=== PATIENT | female | born 1980 | race Caucasian/White ===

== ENCOUNTER 2017-11-24 22:37 | Observation (INO) | payer OTHER ==
--- NOTE | 2017-11-24 23:06 | EDPHY ---
H & P Stated Complaint: c/o r lq abd pain x 3 hours, vomited x 3. Time Seen by Provider: 11/24/17 22:57 HPI/ROS: CHIEF COMPLAINT: Right mid abdominal pain HISTORY OF PRESENT ILLNESS: 37-year-old female, except for obesity - otherwise healthy, reports subacute onset of right mid abdominal pain beginning at 8:00 p.m.. Over the ensuing 3 and 0.5 hr it has been a somewhat of a cyclical pain at times peaking during which time she experienced associated nausea and vomiting and diaphoresis. Over the time the pain has not migrated and has been continually in the right mid quadrant. It does not radiate to the shoulder blade nor does it radiate into the inguinal region. None into the legs. She has never had this kind of pain before Dinner was 3 hr prior, consistent of alexa from a can P: Not worse with movement or breathing Q: Pain R: Right mid abdomen that radiation S: Moderate severe to severe T: Onset at 8:00 p.m., fairly abrupt but getting worse at time since No prior abdominal imaging REVIEW OF SYSTEMS: Constitutional: No fever, no chills. Eyes: No discharge ENT: No sore throat. Cardiovascular: No chest pain, no palpitations. Respiratory: No cough, shortness of breath, or wheezing. Gastrointestinal: See above Genitourinary: No hematuria or frequency. Musculoskeletal: No back pain. Skin: No rashes. Neurological: No headache. 10 point ROS otherwise negative Source: Patient Exam Limitations: No limitations - Personal History LMP (Females 10-55): Now Current Tetanus Diphtheria and Acellular Pertussis (TDAP): Yes - Medical/Surgical History Hx Asthma: No Hx Chronic Respiratory Disease: No Hx Diabetes: No Hx Cardiac Disease: No Hx Renal Disease: No Hx Cirrhosis: No Hx Alcoholism: No Hx HIV/AIDS: No Hx Splenectomy or Spleen Trauma: No Other PMH: No abdominal surgery - Family History Significant Family History: No pertinent family hx (She was adopted.) - Social History Smoking Status: Never smoked Alcohol Use: None Drug Use: None - Physical Exam Exam: General Appearance: Alert, mildly clammy on brow, though good color. Obese. Afebrile. Normal phonation. No respiratory distress. Eyes: Pupils equal and round no pallor or injection. No icterus ENT, Mouth: Mucous membranes moderately dry Pharynx without erythema or exudate. TM Clear. Neck: No adenopathy. Supple. No JVD. Trachea in midline. Respiratory: There are no retractions, lungs are clear to auscultation. Chest wall: Nontender to palpation. No crepitus. Cardiovascular: Regular rate and rhythm, without murmur Abdomen: Soft moderately tender in the right mid quadrant and to a lesser extent the right upper quadrant. No tenderness in the right lower quadrant. Percussion sensitivity to the right mid quadrant. No masses, bowel sounds are normal, no guarding. Neurological: Ox3. No motor weakness. Sensation intact. Gait nl. Skin: Warm and dry, no rashes. Musculoskeletal: No joint swelling. Extremities: No edema. Homans sign negative. No cords. Psychiatric: Normal affect. Patient is oriented X 3. There is no agitation Constitutional: Initial Vital Signs Temperature (C) 36.6 C 11/24/17 22:47 Heart Rate 98 11/24/17 22:47 Respiratory Rate 18 11/24/17 22:47 Blood Pressure 136/105 H 11/24/17 22:47 O2 Sat (%) 100 11/24/17 22:47 O2 Delivery Mode Room Air Allergies/Adverse Reactions: No Known Allergies Allergy (Unverified 11/24/17 22:46) Home Medications: Medication Instructions Recorded NK [No Known Home Meds] 11/24/17 Medical Decision Making - Diagnostics Imaging Results: Ultrasound of the abdomen. Interpretation by radiologist. Discussed with radiologist. She has a large 2.5 cm stone lodged in the neck of the gallbladder with gallbladder dilatation of 6.5 cm. The common bile duct is 3 mm. There is no signs of cholecystitis. Imaging: Discussed imaging studies w/ call center professional Radiologist ED Course/Re-evaluation: IV is established and the patient was medicated for her comfort. This included IV medications as follows: Zofran 4 mg and Fentanyl 50 mcg Dilaudid titration over the ensuing 2 hr Based upon the initial clinical exam and high suspicion for biliary colic with cholelithiasis an ultrasound was requested and performed. These results reviewed with the radiologist, confirming my suspicions. I discussed the case with General surgery on-call Dr. Cuevas. He concurred with the plan for admission for pain management, observation with consideration of cholecystectomy in the day tomorrow. At this point in time there is no signs of complications such as cholecystitis, cholangitis, or choledocholithiasis, nor pancreatitis. After about another hour, we were able to hear from the [facility] that indeed a bed was available. Overtime, the initial mery of medications was no longer effective and she required additional Dilaudid for total of 1.5 mg as well as additional Zofran. I met with the patient and recommended a transfer to the hospital by ambulance; however, she requested to go by private car. She continued to be nontoxic appearing, afebrile, and had persistent right mid and right upper quadrant tenderness. Differential Diagnosis: Differential diagnosis includes, but is not limited to: Gastroenteritis, dehydration, hepatitis, pancreatitis, renal colic, kidney stones, ureterolithiasis, cholecystitis, appendicitis, gastritis, mesenteric adenitis. - Data Points Laboratory Results: Laboratory Results 11/24/17 23:00 11/24/17 23:00 11/24/17 11/24/17 11/24/17 23:05 23:00 23:00 WBC RBC Hgb Hct MCV MCH MCHC RDW Plt Count MPV Neut % (Auto) Lymph % (Auto) Toole % (Auto) Eos % (Auto) Baso % (Auto) Nucleat RBC Rel Count Absolute Neuts (auto) Absolute Lymphs (auto) Absolute Monos (auto) Absolute Eos (auto) Absolute Basos (auto) Absolute Nucleated RBC Immature Gran % Immature Gran # Sodium 143 mEq/L mEq/L (135-145) Potassium 4.4 mEq/L mEq/L (3.5-5.2) Chloride 104 mEq/L mEq/L (97-110) Carbon Dioxide 21 mEq/l L mEq/l (22-31) Anion Gap 18 mEq/L H mEq/L (8-16) BUN 22 mg/dL mg/dL (7-23) Creatinine 1.2 mg/dL H mg/dL (0.6-1.0) Estimated GFR 51 Glucose 120 mg/dL H mg/dL (70-100) Calcium 9.5 mg/dL mg/dL (8.5-10.4) Total Bilirubin 0.4 mg/dL mg/dL (0.1-1.4) Conjugated Bilirubin 0.2 mg/dL mg/dL (0.0-0.5) Unconjugated Bilirubin 0.2 mg/dL mg/dL (0.0-1.1) AST 17 IU/L IU/L (14-46) ALT 28 IU/L IU/L (9-52) Alkaline Phosphatase 64 IU/L IU/L (38-126) Total Protein 7.6 g/dL g/dL (6.3-8.2) Albumin 4.1 g/dL g/dL (3.5-5.0) Lipase 175 IU/L IU/L (23-300) Beta HCG, Qual NEGATIVE Urine Color Cancelled Urine Appearance Cancelled Urine pH Cancelled Ur Specific Raymond Cancelled Urine Protein Cancelled Urine Ketones Cancelled Urine Blood Cancelled Urine Nitrate Cancelled Urine Bilirubin Cancelled Urine Urobilinogen Cancelled Ur Leukocyte Esterase Cancelled Urine Glucose Cancelled 11/24/17 23:00 WBC 11.83 10^3/uL H 10^3/uL (3.80-9.50) RBC 4.56 10^6/uL 10^6/uL (4.18-5.33) Hgb 13.6 g/dL g/dL (12.6-16.3) Hct 39.4 % % (38.0-47.0) MCV 86.4 fL fL (81.5-99.8) MCH 29.8 pg pg (27.9-34.1) MCHC 34.5 g/dL g/dL (32.4-36.7) RDW 12.1 % % (11.5-15.2) Plt Count 318 10^3/uL 10^3/uL (150-400) MPV 11.3 fL fL (8.7-11.7) Neut % (Auto) 76.6 % H % (39.3-74.2) Lymph % (Auto) 17.7 % % (15.0-45.0) Toole % (Auto) 4.2 % L % (4.5-13.0) Eos % (Auto) 0.9 % % (0.6-7.6) Baso % (Auto) 0.3 % % (0.3-1.7) Nucleat RBC Rel Count 0.0 % % (0.0-0.2) Absolute Neuts (auto) 9.07 10^3/uL H 10^3/uL (1.70-6.50) Absolute Lymphs (auto) 2.09 10^3/uL 10^3/uL (1.00-3.00) Absolute Monos (auto) 0.50 10^3/uL 10^3/uL (0.30-0.80) Absolute Eos (auto) 0.11 10^3/uL 10^3/uL (0.03-0.40) Absolute Basos (auto) 0.03 10^3/uL 10^3/uL (0.02-0.10) Absolute Nucleated RBC 0.00 10^3/uL 10^3/uL (0-0.01) Immature Gran % 0.3 % % (0.0-1.1) Immature Gran # 0.03 10^3/uL 10^3/uL (0.00-0.10) Sodium Potassium Chloride Carbon Dioxide Anion Gap BUN Creatinine Estimated GFR Glucose Calcium Total Bilirubin Conjugated Bilirubin Unconjugated Bilirubin AST ALT Alkaline Phosphatase Total Protein Albumin Lipase Beta HCG, Qual Urine Color Urine Appearance Urine pH Ur Specific Raymond Urine Protein Urine Ketones Urine Blood Urine Nitrate Urine Bilirubin Urine Urobilinogen Ur Leukocyte Esterase Urine Glucose Medications Given: Discontinued Medications Dexamethasone (Decadron Injection) 4 mg IVP ONCALL ONE Stop: 11/25/17 03:35 Last Admin: 11/25/17 06:08 Dose: 4 mg Fentanyl (Sublimaze) 50 mcg IVP EDNOW ONE Stop: 11/24/17 23:19 Last Admin: 11/24/17 23:25 Dose: 50 mcg Hydromorphone HCl (Dilaudid) 0.5 mg IVP EDNOW ONE Stop: 11/24/17 23:19 Last Admin: 11/24/17 23:46 Dose: 0.5 mg Hydromorphone HCl (Dilaudid) 0.5 mg IVP EDNOW ONE Stop: 11/25/17 00:53 Last Admin: 11/25/17 00:56 Dose: 0.5 mg Hydromorphone HCl (Dilaudid) 0.5 mg IVP EDNOW ONE Stop: 11/25/17 01:41 Last Admin: 11/25/17 01:47 Dose: 0.5 mg Ondansetron HCl (Zofran) 4 mg IVP EDNOW ONE Stop: 11/24/17 23:19 Last Admin: 11/24/17 23:25 Dose: 4 mg Ondansetron HCl (Zofran) 4 mg IVP ONCE ONE Stop: 11/25/17 02:28 Last Admin: 11/25/17 02:30 Dose: 4 mg Ondansetron HCl (Zofran) 4 mg IVP ONCE ONE Stop: 11/25/17 02:29 Last Admin: 11/25/17 02:32 Dose: Not Given Departure - Departure Disposition: [facility] Acute Clinical Impression: Biliary colic Cholelithiasis Qualifiers: Cholelithiasis location: gallbladder Cholecystitis presence: without cholecystitis Biliary obstruction: without biliary obstruction Qualified Code(s) : K80.20 - Calculus of gallbladder without cholecystitis without obstruction Condition: Fair
[2017-11-24 23:15] LABS: PLATELET COUNT 318 10^3/uL (150-400)
[2017-11-24] MEDS ORDERED: ONDANSETRON 4 MG/2 ML VIAL IVP ONE (23:18)
[2017-11-24] MEDS ORDERED: HYDROmorphONE/DILAUDID 1 MG/ML INJ IVP ONE (23:18)
[2017-11-24] MEDS ORDERED: fentaNYL 100 MCG/2 ML INJ IVP ONE (23:18)
[2017-11-25] MEDS ORDERED: HYDROmorphONE/DILAUDID 1 MG/ML INJ IVP ONE ×2 (00:52→01:40)
[2017-11-25] MEDS ORDERED: HYDROmorphONE/DILAUDID 1 MG/ML INJ ONE (01:47)
[2017-11-25] MEDS ORDERED: ONDANSETRON 4 MG/2 ML VIAL IVP PRN ×3 (02:20→08:25)
[2017-11-25] MEDS ORDERED: ONDANSETRON 4 MG/2 ML VIAL IVP ONE ×2 (02:28→03:34)
[2017-11-25] MEDS: ONDANSETRON 4 MG/2 ML VIAL IVP ONE ×2 (02:29→02:30)
[2017-11-25] MEDS ORDERED: ceFAZolin 3 GM in D5W 100 ML IV ONE (03:34)
[2017-11-25] MEDS ORDERED: DEXAMETHASONE 4 MG/ML VIAL IVP ONE (03:34)
[2017-11-25] MEDS ORDERED: HYDROmorphONE/DILAUDID 1 MG/ML INJ IVP PRN ×3 (03:37→08:25)
[2017-11-25] MEDS ORDERED: LR 1,000 ML IV SCH ×2 (04:00→08:30)
--- NOTE | 2017-11-25 04:36 | PDGENHP ---
History and Physical - Chief Complaint abd pain - History of Present Illness 37 y/o female with sudden onset abd pain after dinner last night. She vomitted twice and presented to [place] [facility] [place]. Ultrasound was performed and showed an impacted stone in the gallbladder. She was transferred to [facility] for surgical consultation and definitive care. She continues to have pain, but her nausea is improved History Information - Allergies/Home Medication List Allergies/Adverse Reactions: No Known Allergies Allergy (Unverified 11/24/17 22:46) Home Medications: NK [No Known Home Meds] 11/24/17 [Last Taken Unknown] I have personally reviewed and updated: family history, medical history, social history, surgical history - Surgical History Additional surgical history: breast reduction surgery - Social History Smoking Status: Never smoked Alcohol Use: None Drug Use: None Review of Systems Review of Systems: Cardiac: Reports: no symptoms Respiratory: Reports: no symptoms Gastrointestinal: Reports: vomitting, abdominal pain Genitourinary: Reports: no symptoms Physical Exam Physical Exam: Temp Pulse Resp BP Pulse Ox 36.5 C 90 18 135/77 H 96 11/25/17 03:00 11/25/17 03:00 11/25/17 03:00 11/25/17 03:00 11/25/17 03:00 Constitutional: no apparent distress Eyes: anicteric sclera Cardiovascular: regular rate and rhythym Respiratory: no respiratory distress, clear to auscultation Gastrointestinal: other (hypoactive bowel sounds, tender RUQ, +Pillai's) Skin: warm Psychiatric: interacting appropriately, not anxious Lab Data & Imaging Review 11/24/17 23:00 11/24/17 23:00 WBC 11.83 10^3/uL (3.80-9.50) H 11/24/17 23:00 RBC 4.56 10^6/uL (4.18-5.33) 11/24/17 23:00 Hgb 13.6 g/dL (12.6-16.3) 11/24/17 23:00 Hct 39.4 % (38.0-47.0) 11/24/17 23:00 MCV 86.4 fL (81.5-99.8) 11/24/17 23:00 MCH 29.8 pg (27.9-34.1) 11/24/17 23:00 MCHC 34.5 g/dL (32.4-36.7) 11/24/17 23:00 RDW 12.1 % (11.5-15.2) 11/24/17 23:00 Plt Count 318 10^3/uL (150-400) 11/24/17 23:00 MPV 11.3 fL (8.7-11.7) 11/24/17 23:00 Neut % (Auto) 76.6 % (39.3-74.2) H 11/24/17 23:00 Lymph % (Auto) 17.7 % (15.0-45.0) 11/24/17 23:00 [place] % (Auto) 4.2 % (4.5-13.0) L 11/24/17 23:00 Eos % (Auto) 0.9 % (0.6-7.6) 11/24/17 23:00 Baso % (Auto) 0.3 % (0.3-1.7) 11/24/17 23:00 Nucleat RBC Rel Count 0.0 % (0.0-0.2) 11/24/17 23:00 Absolute Neuts (auto) 9.07 10^3/uL (1.70-6.50) H 11/24/17 23:00 Absolute Lymphs (auto) 2.09 10^3/uL (1.00-3.00) 11/24/17 23:00 Absolute Monos (auto) 0.50 10^3/uL (0.30-0.80) 11/24/17 23:00 Absolute Eos (auto) 0.11 10^3/uL (0.03-0.40) 11/24/17 23:00 Absolute Basos (auto) 0.03 10^3/uL (0.02-0.10) 11/24/17 23:00 Absolute Nucleated RBC 0.00 10^3/uL (0-0.01) 11/24/17 23:00 Immature Gran % 0.3 % (0.0-1.1) 11/24/17 23:00 Immature Gran # 0.03 10^3/uL (0.00-0.10) 11/24/17 23:00 Sodium 143 mEq/L (135-145) 11/24/17 23:00 Potassium 4.4 mEq/L (3.5-5.2) 11/24/17 23:00 Chloride 104 mEq/L (97-110) 11/24/17 23:00 Carbon Dioxide 21 mEq/l (22-31) L 11/24/17 23:00 Anion Gap 18 mEq/L (8-16) H 11/24/17 23:00 BUN 22 mg/dL (7-23) 11/24/17 23:00 Creatinine 1.2 mg/dL (0.6-1.0) H 11/24/17 23:00 Estimated GFR 51 11/24/17 23:00 Glucose 120 mg/dL (70-100) H 11/24/17 23:00 Calcium 9.5 mg/dL (8.5-10.4) 11/24/17 23:00 Total Bilirubin 0.4 mg/dL (0.1-1.4) 11/24/17 23:00 Conjugated Bilirubin 0.2 mg/dL (0.0-0.5) 11/24/17 23:00 Unconjugated Bilirubin 0.2 mg/dL (0.0-1.1) 11/24/17 23:00 AST 17 IU/L (14-46) 11/24/17 23:00 ALT 28 IU/L (9-52) 11/24/17 23:00 Alkaline Phosphatase 64 IU/L (38-126) 11/24/17 23:00 Total Protein 7.6 g/dL (6.3-8.2) 11/24/17 23:00 Albumin 4.1 g/dL (3.5-5.0) 11/24/17 23:00 Lipase 175 IU/L (23-300) 11/24/17 23:00 Beta HCG, Qual NEGATIVE 11/24/17 23:00 Urine Color Cancelled 11/24/17 23:05 Urine Appearance Cancelled 11/24/17 23:05 Urine pH Cancelled 11/24/17 23:05 Ur Specific Fence Cancelled 11/24/17 23:05 Urine Protein Cancelled 11/24/17 23:05 Urine Ketones Cancelled 11/24/17 23:05 Urine Blood Cancelled 11/24/17 23:05 Urine Nitrate Cancelled 11/24/17 23:05 Urine Bilirubin Cancelled 01/17/18 23:05 Urine Urobilinogen Cancelled 11/24/17 23:05 Ur Leukocyte Esterase Cancelled 11/24/17 23:05 Urine Glucose Cancelled 11/24/17 23:05 Visualized and Interpreted imaging results: Yes Interpretation: cholelithiasis/GB wall thickening Assessment & Plan Assessment: Biliary colic (Acute) Cholelithiasis (Acute) obesity Plan: We discussed lap cholecystectomy, procedural risks and expected recovery Informed consent obtained.
[2017-11-25] MEDS ORDERED: LR 1,000 ML IV ONE (05:44)
[2017-11-25] MEDS ORDERED: MIDAZOLAM 2 MG/2 ML VIAL IVP ONE (06:43)
--- NOTE | 2017-11-25 06:44 | PDANEPAE ---
ANE History of Present Illness here for lap mariama CATALINA Past Medical History - Cardiovascular History Hx Hypertension: No Hx Arrhythmias: No Hx Chest Pain: No Hx Coronary Artery / Peripheral Vascular Disease: No Hx CHF / Valvular Disease: No Hx Palpitations: No - Pulmonary History Hx COPD: No Hx Asthma/Reactive Airway Disease: No Hx Recent Upper Respiratory Infection: No Hx Oxygen in Use at Home: No Hx Sleep Apnea: No Sleep Apnea Screening Result - Last Documented: Negative - Endocrine History Hx Diabetes: No Hypothyroid: No Hyperthyroid: No Obesity: no - Renal History Hx Renal Disorders: No - Liver History Hx Hepatic Disorders: No - Neurological & Psychiatric Hx Hx Neurological and Psychiatric Disorders: No ANE Review of Systems Review of systems is: negative Review of Systems: - Exercise capacity Exercise capacity: >=4 METS ANE Patient History - Allergies Allergies/Adverse Reactions: No Known Allergies Allergy (Unverified 11/24/17 22:46) - Home Medications Home medications: home medication list seen and reviewed Home Medications: NK [No Known Home Meds] 11/24/17 [Last Taken Unknown] - NPO status NPO Status: no food or drink >8 hours NPO Since - Liquids (Date): 11/24/17 NPO Since - Liquids (Time): 17:00 NPO Since - Solids (Date): 11/24/17 NPO Since - Solids (Time): 17:00 - Smoking Hx Smoking Status: Never smoked - Alcohol Use Alcohol Use: None ANE Labs/Vital Signs - Labs Result Diagrams: 11/24/17 23:00 11/24/17 23:00 - Vital Signs Vital Signs: reviewed preoperatively; see RN documention for details Blood Pressure: 119/73 Heart Rate: 101 Respiratory Rate: 18 O2 Sat (%): 16 Height: 162.56 cm Weight: 91.172 kg ANE Physical Exam - Airway Neck exam: FROM Mallampati Score: Class 1 - Pulmonary Pulmonary: no respiratory distress - Cardiovascular Cardiovascular: regular rate and rhythym - ASA Status ASA Status: II ANE Anesthesia Plan Anesthesia Plan: general endotracheal anesthesia
[2017-11-25] MEDS ORDERED: PROPOFOL/EMULSION 500 MG/50 ML BOTTLE IV ONE (06:54)
[2017-11-25] MEDS ORDERED: fentaNYL 100 MCG/2 ML INJ ONE ×3 (06:56→08:37)
[2017-11-25] MEDS: BUPIVACAINE 0.25% 30 ML SDV ONE ×2 (07:13→09:14)
[2017-11-25] MEDS ORDERED: ALBUTEROL 3 ML DEYVIAL IH PRN (07:49)
[2017-11-25] MEDS ORDERED: NALOXONE HCL 0.4 MG/ML INJ IVP PRN (07:49)
[2017-11-25] MEDS ORDERED: PROMETHAZINE HCL 25 MG/ML INJ IVP PRN (07:49)
[2017-11-25] MEDS ORDERED: METOCLOPRAMIDE 10 MG/2 ML VIAL IVP PRN (08:25)
--- NOTE | 2017-11-25 08:25 | POSTOPPROG ---
Post Op Note Date of Operation: 11/25/17 Surgeon: Andrea Cuevas (, FACS) Anesthesiologist: Kei Chen MD Anesthesia: GET(General Endotracheal) Pre-op Diagnosis: cholecystitis Post-op Diagnosis: same Indication: impacted gallstone Procedure: lap cholecystectomy Inf/Abcess present in the surg proc area at time of surgery?: No EBL: Minimal (10ml)
[2017-11-25] MEDS ORDERED: KETOROLAC 15 MG/1 ML SDV ONE (08:37)
[2017-11-25] MEDS: fentaNYL 100 MCG/2 ML INJ IVP PRN ×2 (08:43→08:54)
[2017-11-25] MEDS: KETOROLAC 15 MG/1 ML SDV IVP SCH ×2 (08:45→16:06)
[2017-11-25] MEDS: HYDROCODONE/APAP 5/325 TAB PO PRN ×3 (10:30→20:06)
[2017-11-25] MEDS: ENOXAPARIN 40 MG/0.4 ML SYR SC SCH (10:30)
--- NOTE | 2017-11-25 23:24 | GOP ---
[f rep st] OPERATIVE REPORT DATE OF OPERATION: 11/25/2017 SURGEON: Andrea Cuevas MD, FACS ANESTHESIA: General endotracheal. ANESTHESIOLOGIST: Kei Chen MD PREOPERATIVE DIAGNOSIS: Acute cholecystitis. POSTOPERATIVE DIAGNOSIS: Acute cholecystitis. PROCEDURE PERFORMED: Laparoscopic cholecystectomy. FINDINGS: Markedly dilated gallbladder with a single large stone impacted into the neck of the gallbladder. Moderate hepatic steatosis. ESTIMATED BLOOD LOSS: 10 cc or less. DESCRIPTION OF PROCEDURE: After informed consent was obtained, the patient was brought to the operating room and placed under general anesthesia. The abdomen was prepped and draped in the usual fashion. Before proceeding, a time-out and identification of the patient was performed. 0.25% Marcaine was used to infiltrate all incision sites. A transverse incision was made below the umbilicus and carried through the skin and subcutaneous tissues. Ventral traction was applied to the abdominal wall with a penetrating towel clamp and a Veress needle was delivered into the peritoneal cavity. Position was confirmed by saline infusion and a pneumoperitoneum was established with CO2 gas to a pressure of 15 mmHg. The Veress needle was withdrawn and replaced with a 12 mm bladeless trocar. A 30-degree 5 mm scope was introduced and the peritoneal cavity was visualized. Additional 5 mm ports were placed in the subxiphoid position to the right of the falciform ligament, right upper quadrant midclavicular line, and right upper quadrant anterior axillary line. This allowed introduction of atraumatic grasping forceps. The gallbladder was distended but could be grasped without difficulty by the fundus. It was elevated and retracted cephalad, exposing the infundibulum. This was grasped and manipulated anteriorly and posteriorly while the peritoneum was dissected away from the cystic duct circumferentially. Once the cystic duct had been cleared circumferentially, it was doubly hemoclipped and divided. The cystic artery presented posteriorly. This was hemoclipped and divided with the Harmonic Scalpel, which was then used to dissect the gallbladder away from the liver edge. After the gallbladder had been detached, it was retrieved through the umbilical port site with an Endopouch. The perihepatic space had some ascites, but no significant bleeding noted. This was aspirated and hemostasis was inspected and noted to be secure. The umbilical fascial defect was repaired with a transfascial closure needle and 0 Vicryl suture. The pneumoperitoneum was evacuated. The remaining ports were removed. Subcutaneous tissues were approximated with 3-0 Monocryl suture. Skin was closed with 4-0 Monocryl suture in a subcuticular fashion. Mastisol, Steri-Strips, and sterile dressings were applied. Needle, sponge, and instrument count were correct. COMPLICATIONS: None. /[id number]/MODL MTDD
[2017-11-26] MEDS: KETOROLAC 15 MG/1 ML SDV IVP SCH ×2 (00:08→05:36)
--- NOTE | 2017-11-26 07:21 | PDDCSUM ---
Discharge Summary Discharge Summary: DOA: 11/25/17 DOD: 11/26/17 DC Dx: acute cholecystitis/cholelithiasis obesity Procedure: 11/25/17 lap cholecystectomy Course: Betina presented with a large gallstone impacted in the neck of her gallbladder and unrelenting pain. She received 3 gm of Ancef and was brought to the OR shortly after admission and underwent lap cholecystectomy. She received 2 doses of Ancef post op and was advanced in her diet. At time of discharge she was afebrile, ambulatory and tolerating oral meds. She was instructed in diet, activity and wound care and will follow up in my office in one week. DC Meds: [place] #30 [place]-S #30 S MD Faith, FACS
[2017-11-26] MEDS: ENOXAPARIN 40 MG/0.4 ML SYR SC SCH (08:53)
[2017-11-26] MEDS: HYDROCODONE/APAP 5/325 TAB PO PRN (08:53)
[2017-11-26 10:07] VITALS: BP 115/78; PULSE 84; RESP 18; TEMP 97.9; O2SAT 97
== END 2017-11-26 11:39 | disposition home or self-care (01) ==
LOC: CED 22:37 → CEDHOLD 11-25 01:37 → FOB 11-25 03:00
PROVIDERS: ADMIT Surgery; ATTEND Surgery
PROC: 0FT44ZZ Resection of Gallbladder, Percutaneous Endoscopic Approach (ICD-10-PCS; principal; 2017-11-25 06:30)
DX: K80.00 Calculus of gallbladder with acute cholecystitis without obstruction (principal); K76.0 Fatty (change of) liver, not elsewhere classified
CPT/HCPCS: 47562; 76705; 96374; 96375; 96376; 99285; G0378; 80048-PO; 80076-PO; 83690-PO; 84703-PO; 85025-PO; J0690; J1100; J1170; J1650; J1885; J2250; J2405; J2704; J2765; J3010

== ENCOUNTER 2018-11-22 06:32 | Emergency (ER) | payer SELFPAY ==
[2018-11-22] MEDS ORDERED: ONDANSETRON 4 MG/2 ML VIAL ONE (07:10)
[2018-11-22] MEDS ORDERED: ONDANSETRON 4 MG/2 ML VIAL IVP ONE ×2 (07:13→09:02)
[2018-11-22] MEDS ORDERED: KETOROLAC 15 MG/1 ML SDV IVP ONE (07:26)
[2018-11-22] MEDS ORDERED: NS 1,000 ML IV ONE (07:26)
--- NOTE | 2018-11-22 08:04 | EDPHY ---
H & P Stated Complaint: nauseous for 2 weeks, r sided abd pain last night Time Seen by Provider: 11/22/18 07:06 HPI/ROS: This patient complains of abdominal pain and nausea. She explains that she has had about 2 weeks of nausea that seems to be triggered by eating and also sometimes spontaneous nausea. She has only had 2 episodes of vomiting, the most recent was 48 hr ago. She developed associated right-sided abdominal pain over the past 24 hr that she describes as 5/10 intensity achy and somewhat sharp when she moves. She has associated anorexia. Her last meal was dinner last night. She has not taken any analgesics for her pain. She does have moderate nausea currently. She reports the nature of this pain is somewhat similar to her pain with cholecystitis 1 year ago. She had cholecystectomy and simultaneous umbilical hernia repair 1 year ago at [facility] ROS: Constitutional: No fevers or chills. HEENT: No recent URI symptoms Pulmonary: No cough shortness of breath Cardiovascular: No lightheadedness or chest pain GI: She reports loose stools recently explaining last week she had multiple loose stools a day. Her stool consistency as nearly normalized now but she still having more than 1 bowel movement a day. She denies any distention of her belly. No dark tarry stools. : Last menstrual period was normal timing 3 weeks ago. She does not think she is . She has no dysuria, frequency or urgency. No vaginal discharge. Integumentary: No skin rash 10 point review of symptoms is performed and otherwise negative with exception of pertinent positives and negatives listed in HPI and ROS Source: Patient Exam Limitations: No limitations - Personal History LMP (Females 10-55): 15-21 Days Ago Current Tetanus Diphtheria and Acellular Pertussis (TDAP): No - Medical/Surgical History PMH: Moderate obesity, umbilical hernia repair, cholecystectomy with 2 tabs Hx Asthma: No Hx Chronic Respiratory Disease: No Hx Diabetes: No Hx Cardiac Disease: No Hx Renal Disease: No Hx Cirrhosis: No Hx Alcoholism: No Hx HIV/AIDS: No Hx Splenectomy or Spleen Trauma: No Other PMH: gallbladder removed, hernia repair - Social History Smoking Status: Never smoked Alcohol Use: Occasionally Drug Use: None - Physical Exam Exam: General Appearance: Pleasant mildly obese female Alert, no distress. Eyes: Pupils equal and round no pallor or injection. ENT, Mouth: Mucous membranes moist. Respiratory: There are no retractions, lungs are clear to auscultation. Cardiovascular: Regular rate and rhythm. Gastrointestinal: Normoactive, soft, mild right lower quadrant tenderness and suprapubic tenderness. No guarding or rebound. Back: No CVA tenderness Neurological: GCS 15 Skin: Warm and dry, no rashes. Musculoskeletal: Neck is supple nontender. Extremities are symmetrical, full range of motion. Psychiatric: Mood and affect are normal DIFFERENTIAL DIAGNOSIS: After history and physical exam differential diagnosis was considered for cystitis, ureteral stone, appendicitis, diverticulitis, early bowel obstruction, Constitutional: Initial Vital Signs Temperature (C) 37 C 11/22/18 06:53 Heart Rate 108 H 11/22/18 06:53 Respiratory Rate 16 11/22/18 06:53 Blood Pressure 131/89 H 11/22/18 06:53 O2 Sat (%) 96 11/22/18 06:53 O2 Delivery Mode Room Air Allergies/Adverse Reactions: No Known Allergies Allergy (Unverified 11/24/17 22:46) Home Medications: Medication Instructions Recorded Ondansetron Odt [Zofran Odt] 4 - 8 mg PO Q4PRN PRN #4 tab 11/22/18 Medical Decision Making - Diagnostics Imaging Results: Imaging Impressions Abdomen CT 11/22/18 08:04 Impression: 1. Hepatomegaly with moderate diffuse steatosis. 2. Status post cholecystectomy. 3. Normal CT appearance of the appendix. 4. Lobulated, heterogeneous contour of the uterus, suggestive of leiomyomata. 5. Cervical fullness versus redundancy of the vaginal fornices. Consider correlation with a Pap smear. 6. There is no evidence of a mechanical bowel obstruction, focal fluid collection, or free air. Findings were discussed with NATALIA SUAREZ MD at 8:40 AM, on 11/22/2018. Imaging: Discussed imaging studies w/ call center consultant Radiologist ED Course/Re-evaluation: IV Zofran with resolution of nausea Toradol with improvement in pain Labs: Normal POC CBC, comp metabolic panel, urinalysis and urine is negative Discussion: Patient improved with treatment as had a benign workup here. Radiologist reports that the appendix was visualized appears normal. Cause of this patient's pain is unclear but may be due to viral illness. She was noted to have a generous cervix on CT and encouraged to have follow-up with OBGYN for Pap smear soon if she has not had 1 recently. I explained all this in some detail the patient answered all her questions prior to discharge home. She understands need to return emergency department should she develop any significant worsening of symptoms despite plan [id number] analgesics and Zofran for nausea if needed. - Data Points Medications Given: Discontinued Medications Sodium Chloride (Ns) 1,000 mls @ 0 mls/hr IV ONCE ONE; Wide Open PRN Reason: Protocol Stop: 11/22/18 07:27 Last Admin: 11/22/18 08:00 Dose: 1,000 mls Ketorolac Tromethamine (Toradol) 15 mg IVP EDNOW ONE Stop: 11/22/18 07:27 Last Admin: 11/22/18 07:59 Dose: 15 mg Ondansetron HCl (Zofran) 4 mg IVP EDNOW ONE Stop: 11/22/18 07:14 Last Admin: 11/22/18 07:13 Dose: 4 mg Ondansetron HCl (Zofran) 4 mg IVP EDNOW ONE Stop: 11/22/18 09:03 Last Admin: 11/22/18 09:06 Dose: 4 mg Point of Care Test Results: CBC CBC Collection Date 11/22/18 CBC Collection Time 07:10 WBC 8.2 RBC 4.55 HGB 13.9 HCT 39.4 PLT 272 Neut # 5.7 Neut 69.8 LYMPH # 2.2 LYMPH 26.8 Other WBC # 0.3 Other WBC 3.4 MCV 86.6 Urine Collection Date 11/22/18 Collection Time 07:35 HCG Results Negative Urine Dip Collection Date 11/22/18 Collection Time 07:35 Specific [place] (1.002-1.030) 1.030 PH (5.0-7.5) 5.5 Leukocytes (Negative) Negative Nitrites (Negative) Negative Protein (Negative) 1+ Glucose (Negative) Negative Ketones (Negative) Negative Urobilnogen (0.2-1.0 EU) 0.2 Bilirubin (Negative) Negative Blood (Negative) Trace Departure - Departure Disposition: Home, Routine, Self-Care Clinical Impression: Lower abdominal pain, Nausea Condition: Good Instructions: Acute Nausea and Vomiting (ED), Acute Abdominal Pain (ED) Additional Instructions: Diagnosis: Lower abdominal pain 2. Nausea Your CT abdomen pelvis looked normal although you're cervix looked slightly generous in size. Plan: We recommend that he follow up with her OBGYN to have a Pap smear if you have not had 1 recently. Zofran for nausea if needed Ibuprofen Tylenol for pain as needed Return for any significant worsening despite the treatment plan. Referrals: Ynes Ayala, [Doctor of Osteopathy] - As per Instructions Stand Alone Forms: Work Excuse Prescriptions: Ondansetron Odt [Zofran Odt] 4 - 8 mg PO Q4PRN PRN #4 tab PRN Reason: Vomiting
[2018-11-22] MEDS ORDERED: IOPAMIDOL (ISOVUE-370) 150 ML BTL IV ONE (08:11)
[2018-11-22 09:09] VITALS: BP 133/74
== END 2018-11-22 09:15 | disposition home or self-care (01) ==
LOC: CED 06:32
DX: R10.31 Right lower quadrant pain (principal); R11.2 Nausea with vomiting, unspecified; E86.9 Volume depletion, unspecified; Z90.49 Acquired absence of other specified parts of digestive tract
CPT/HCPCS: 74177-PO; 80053-ER; 96361-ER; 96374-ER; 96375-ER; 96376-ER; J1885; J2405; Q9967

== ENCOUNTER 2019-01-17 20:27 | Emergency (ER) | payer OTHER ==
[2019-01-17] MEDS ORDERED: TDAP ADULT 0.5 ML INJ (BOOSTRIX) IM ONE (20:40)
--- NOTE | 2019-01-17 21:00 | EDPHY ---
H & P Time Seen by Provider: 01/17/19 20:28 HPI/ROS: 39-year-old female presents complaining of finger laceration to the lateral aspect of her right distal pointer finger. She states she cut it on a plate. She cannot recall her last tetanus vaccination. Review of systems As per HPI General no fever no chills no weakness HEENT no eye pain no eye discharge. 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 Smoking Status: Never smoked Physical Exam: 39-year-old female alert oriented no acute distress nontoxic appearance Alert and oriented in no acute distress nontoxic appearance, afebrile Atraumatic normocephalic Neck no JVD Lungs clear to auscultation, no respiratory distress Heart regular rate and rhythm Extremities no cyanosis clubbing edema Right hand-right index finger lateral aspect distal finger with oval shaped flap like wound measuring 1 cm finger with from, good cap refill Constitutional: Initial Vital Signs Temperature (C) 36.4 C 01/17/19 20:37 Heart Rate 116 H 01/17/19 20:37 Respiratory Rate 16 01/17/19 20:37 Blood Pressure 159/79 H 01/17/19 20:37 O2 Sat (%) 97 01/17/19 20:37 O2 Delivery Mode Room Air Allergies/Adverse Reactions: No Known Allergies Allergy (Verified 01/17/19 20:37) Home Medications: Medication Instructions Recorded NK [No Known Home Meds] 01/17/19 Medical Decision Making Procedures: Procedure note-laceration metacarpal block with bupivacine 0.5% and xylocaine 2% The wound was irrigated with copious amounts of saline. 5 simple interrupted sutures were placed to a flap wound 1 cm 5-0 Ethilon was used. Patient tolerated procedure well. ED Course/Re-evaluation: Pt seen and evaluated for finger laceration. imp right pointer finger with flap laceration plan sutured repair pt educated on reasons to return and explained that expectation for survival of the flap at this point is 50/50 but that by suturing it in place if the flap itself does not survive it will act as a natural bandaid return in 10-12 days for suture removal Differential Diagnosis: Differential diagnosis considered but not limited to Finger laceration - Data Points Medications Given: Discontinued Medications Diphtheria/Tetanus/Acell Pertussis (Boostrix) 0.5 ml IM .ONCE ONE Stop: 01/17/19 20:41 Last Admin: 01/17/19 20:50 Dose: 0.5 ml Departure - Departure Disposition: Home, Routine, Self-Care Clinical Impression: Finger laceration, Immunization, tetanus-diphtheria Condition: Good Instructions: Care For Your Stitches (ED), Laceration (ED) Additional Instructions: Return in 10-12 days for suture removal Referrals: NONE *PRIMARY CARE P,. [Primary Care Provider] - As per Instructions [facility] [Clinic] - As per Instructions Stand Alone Forms: Work Excuse
[2019-01-17 22:18] VITALS: BP 145/87
== END 2019-01-17 22:16 | disposition home or self-care (01) ==
LOC: CED 20:27
PROC: 0HQFXZZ Repair Right Hand Skin, External Approach (ICD-10-PCS; principal; 2019-01-17)
DX: S61.210A Laceration without foreign body of right index finger without damage to nail, initial encounter (principal); Z23 Encounter for immunization; W45.8XXA Other foreign body or object entering through skin, initial encounter; Y92.9 Unspecified place or not applicable; Y93.9 Activity, unspecified; Y99.9 Unspecified external cause status
CPT/HCPCS: 90471-ER; 99283-ER